=== PATIENT | male | born 1995 | race Caucasian/White ===

== ENCOUNTER 2020-06-11 14:04 | Emergency (ER) | payer MEDICAID ==
[~2020-06-11] VITALS: Ht 177.8 cm; Wt 100.0 kg
[2020-06-11] MEDS ORDERED: KETAMINE HCL 50 MG/ML 10 ML VIAL IVP ONE (17:45)
[2020-06-11] MEDS ORDERED: SODIUM CHLORIDE 0.9% 1,000 ML IV ONE (18:45)
[2020-06-11 19:28] VITALS: BP 133/74
== END 2020-06-11 20:21 | disposition home or self-care (01) ==
LOC: EMS 14:13
DX: S63.260A Dislocation of metacarpophalangeal joint of right index finger, initial encounter (principal); S63.262A Dislocation of metacarpophalangeal joint of right middle finger, initial encounter; S63.264A Dislocation of metacarpophalangeal joint of right ring finger, initial encounter; W01.0XXA Fall on same level from slipping, tripping and stumbling without subsequent striking against object, initial encounter; Y93.89 Activity, other specified; Y92.89 Other specified places as the place of occurrence of the external cause; Y99.8 Other external cause status
CPT/HCPCS: 26700; 73110; 73130; 96360; 99285; J3490